=== PATIENT | female | born 1995 | race Caucasian/White ===

== ENCOUNTER 2018-10-01 19:14 | Emergency (ER) | payer MEDICAID ==
[~2018-10-01] VITALS: Ht 167.6 cm; Wt 95.8 kg
[2018-10-01 19:20] VITALS: Ht 167.6 cm; Wt 95.8 kg
[2018-10-01 21:03] VITALS: BP 128/60
== END 2018-10-01 21:03 | disposition home or self-care (01) ==
LOC: ED 19:14
DX: M79.10 Myalgia, unspecified site (principal); V49.9XXA Car occupant (driver) (passenger) injured in unspecified traffic accident, initial encounter; Y93.89 Activity, other specified; Y92.488 Other paved roadways as the place of occurrence of the external cause; Y99.8 Other external cause status